=== PATIENT | male | born 1980 | race Caucasian/White ===

== ENCOUNTER 2022-02-06 02:14 | Inpatient (IN) ==
[2022-02-06] MEDS ORDERED: methylPREDNISolone SOD SUC 125 MG/2 ML VIAL IV STA (02:46)
[2022-02-06] MEDS ORDERED: ASPIRIN 325 MG TABLET PO STA (02:46)
[2022-02-06] MEDS ORDERED: MORPHINE 2 MG/1 ML SYRINGE IV STA (02:46)
[2022-02-06] MEDS ORDERED: ALBUTEROL/IPRATROPIUM 3 ML NEB RESP TX STA (02:46)
[2022-02-06] MEDS ORDERED: ONDANSETRON 4 MG/2 ML VIAL IV STA (02:46)
[2022-02-06 03:08] LABS: Basophils # 0.1 10*3/uL (0.0-0.2); Basophils % 0.5 % (0.0-0.8); Hematocrit 42.3 VOL% (42.0-52.0); Hemoglobin 14.1 GM/DL (14.0-18.0); Immature Granulocytes % 2.5 %; Immature Granulocytes Absolute 0.63 #; Lymphocytes # 1.8 10*3/uL (1.4-4.0); Lymphocytes % 7.2 % (21.2-54.2); Mean Corpuscular HGB Conc 33.3 GM/DL (32-36); Mean Corpuscular Volume 87.9 FL (87-102); Mean Platelet Volume 9.7 FL (9.6-12.0); Monocytes % 7.9 % (1.7-12.7); Neutrophils % 81.9 % (38.7-73.9); Platelet Count 260 T/CUMM (130-400); Red Blood Count 4.81 MC/CUMM (3.8-5.5); Red Cell Distribution Width 14.6 % (9.3-17.3)
[2022-02-06] MEDS ORDERED: PIPERACILLIN/TAZOBACTAM 3,375 MG in SODIUM CHLORIDE 0.9% 100 ML IV STA (03:21)
[2022-02-06 03:29] LABS: Lymphocytes 5 % (20-55); Platelet Estimate Adequate; Total Cells Counted 100
[2022-02-06 03:42] LABS: Albumin 2.2 G/DL (3.4-5.0); Bilirubin,Total 1.3 MG/DL (0.20-1.00); Osmolality,Calculated 270.4 MOS/KG (273-304); Total Protein 9.2 G/DL (6.4-8.2)
[2022-02-06 03:45] LABS: Potassium 2.5 MMOL/L (3.5-5.1)
[2022-02-06] MEDS ORDERED: ENOXAPARIN 120 MG/0.8 ML SYRINGE SUBCUT STA (03:48)
[2022-02-06] MEDS ORDERED: POTASSIUM CHLORIDE RIDER 20 MEQ/100 ML PREMIX IV STA (03:48)
[2022-02-06] MEDS ORDERED: POTASSIUM CHLORIDE RIDER 20 MEQ/200 ML PREMIX IV STA (03:50)
[2022-02-06] MEDS ORDERED: ONDANSETRON 4 MG/2 ML VIAL IV PRN (04:43)
[2022-02-06] MEDS ORDERED: ACETAMINOPHEN 325 MG TABLET PO PRN (04:43)
[2022-02-06] MEDS ORDERED: MORPHINE 2 MG/1 ML SYRINGE IV PRN (04:43)
[2022-02-06 05:26] LABS: Barbiturates Screen,Urine Negative (Negative); Benzodiazepines Screen,Urine Negative (Negative); Cannabinoid Screen,Urine Negative (Negative); Opiate Screen,Urine Positive (Negative); Phencyclidine Screen,Urine Negative (Negative)
[2022-02-06] MEDS: LEVALBUTEROL 1.25 MG/3 ML NEB RESP TX SCH ×3 (07:10→19:17)
[2022-02-06] MEDS: FLUTICASONE/SALMETEROL 500-50 DISKUS 14 DOSE INH SCH ×2 (10:23→20:44)
[2022-02-06] MEDS: PANTOPRAZOLE 40 MG TABLET PO SCH (10:27)
[2022-02-06] MEDS: methylPREDNISolone SOD SUC 125 MG/2 ML VIAL IV SCH ×3 (10:30→23:07)
[2022-02-06] MEDS: PIPERACILLIN/TAZOBACTAM 3,375 MG in SODIUM CHLORIDE 0.9% 100 ML IV SCH ×2 (13:58→20:39)
[2022-02-06] MEDS: ENOXAPARIN 40 MG/0.4 ML SYRINGE SUBCUT SCH (14:00)
[2022-02-06] MEDS: MONTELUKAST 10 MG TABLET PO SCH (20:38)
[2022-02-07] MEDS: LEVALBUTEROL 1.25 MG/3 ML NEB RESP TX SCH ×4 (00:05→20:02)
[2022-02-07] MEDS: POTASSIUM CHLORIDE 20 MEQ TABLET PO PRN ×6 (04:23→23:58)
[2022-02-07] MEDS: PIPERACILLIN/TAZOBACTAM 3,375 MG in SODIUM CHLORIDE 0.9% 100 ML IV SCH ×3 (04:32→20:43)
[2022-02-07] MEDS: methylPREDNISolone SOD SUC 125 MG/2 ML VIAL IV SCH ×4 (04:32→23:15)
[2022-02-07 06:01] LABS: Basophils # 0.1 10*3/uL (0.0-0.2); Basophils % 0.6 % (0.0-0.8); Eosinophils # 0.1 10*3/uL (0.0-0.87); Eosinophils % 0.4 % (0.00-10.9); Hematocrit 36.9 VOL% (42.0-52.0); Hemoglobin 11.6 GM/DL (14.0-18.0); Immature Granulocytes Absolute 0.43 #; Lymphocytes # 1.2 10*3/uL (1.4-4.0); Lymphocytes % 8.3 % (21.2-54.2); Mean Corpuscular HGB Conc 31.4 GM/DL (32-36); Mean Corpuscular Volume 90.2 FL (87-102); Mean Platelet Volume 11.1 FL (9.6-12.0); Monocytes # 0.9 10*3/uL (0.11-0.8); Monocytes % 6.7 % (1.7-12.7); Platelet Count 190 T/CUMM (130-400); Red Blood Count 4.09 MC/CUMM (3.8-5.5); Red Cell Distribution Width 14.8 % (9.3-17.3); White Blood Count 14.1 T/CUMM (4-12)
[2022-02-07 06:13] LABS: Alanine Aminotransferase 54 U/L (16-61); Albumin 1.6 G/DL (3.4-5.0); Alkaline Phosphatase 115 U/L (45-117); Aspartate Amino Transferase 48 U/L (0-37); Bilirubin,Total < 0.39 MG/DL (0.20-1.00); Blood Urea Nitrogen 20 MG/DL (7-18); Calcium 9.2 MG/DL (8.5-10.1); Carbon Dioxide 20 MMOL/L (21-32); Chloride 106 MMOL/L (98-107); Glucose 245 MG/DL (74-106); Osmolality,Calculated 278.2 MOS/KG (273-304); Sodium 134 MMOL/L (136-145); Total Protein 7.6 G/DL (6.4-8.2)
[2022-02-07 06:17] LABS: Potassium 2.3 MMOL/L (3.5-5.1)
[2022-02-07 06:28] LABS: Lymphocytes 7 % (20-55); Total Cells Counted 100
[2022-02-07 06:29] LABS: Platelet Estimate Adequate
[2022-02-07] MEDS: PANTOPRAZOLE 40 MG TABLET PO SCH (08:17)
[2022-02-07] MEDS: FLUTICASONE/SALMETEROL 500-50 DISKUS 14 DOSE INH SCH ×2 (08:18→20:43)
[2022-02-07] MEDS ORDERED: POTASSIUM CHLORIDE 20 MEQ TABLET PO SCH (09:30)
[2022-02-07] MEDS: ENOXAPARIN 40 MG/0.4 ML SYRINGE SUBCUT SCH (11:55)
[2022-02-07] MEDS ORDERED: POTASSIUM CHLORIDE 20 MEQ TABLET PO ONE (12:00)
[2022-02-07] MEDS: MONTELUKAST 10 MG TABLET PO SCH (20:42)
[2022-02-08] MEDS: LEVALBUTEROL 1.25 MG/3 ML NEB RESP TX SCH ×4 (00:50→19:35)
[2022-02-08] MEDS: POTASSIUM CHLORIDE 20 MEQ TABLET PO PRN ×2 (01:51→03:57)
[2022-02-08] MEDS: PIPERACILLIN/TAZOBACTAM 3,375 MG in SODIUM CHLORIDE 0.9% 100 ML IV SCH ×3 (02:57→21:12)
[2022-02-08] MEDS: methylPREDNISolone SOD SUC 125 MG/2 ML VIAL IV SCH ×3 (05:02→23:30)
[2022-02-08 05:42] LABS: Basophils # 0.1 10*3/uL (0.0-0.2); Basophils % 0.7 % (0.0-0.8); Hematocrit 34.2 VOL% (42.0-52.0); Hemoglobin 11.4 GM/DL (14.0-18.0); Immature Granulocytes % 3.6 %; Immature Granulocytes Absolute 0.47 #; Lymphocytes # 1.4 10*3/uL (1.4-4.0); Lymphocytes % 10.9 % (21.2-54.2); Mean Corpuscular HGB Conc 33.3 GM/DL (32-36); Mean Corpuscular Volume 87.7 FL (87-102); Mean Platelet Volume 10.1 FL (9.6-12.0); Monocytes # 0.7 10*3/uL (0.11-0.8); Monocytes % 5.6 % (1.7-12.7); Neutrophils % 79.2 % (38.7-73.9); Platelet Count 251 T/CUMM (130-400); Red Cell Distribution Width 14.8 % (9.3-17.3)
[2022-02-08 06:00] LABS: Calcium 8.6 MG/DL (8.5-10.1); Osmolality,Calculated 278.2 MOS/KG (273-304); Potassium 3.3 MMOL/L (3.5-5.1)
[2022-02-08] MEDS: FLUTICASONE/SALMETEROL 500-50 DISKUS 14 DOSE INH SCH ×2 (09:50→21:13)
[2022-02-08] MEDS: PANTOPRAZOLE 40 MG TABLET PO SCH (09:50)
[2022-02-08] MEDS: ENOXAPARIN 40 MG/0.4 ML SYRINGE SUBCUT SCH (11:53)
[2022-02-08] MEDS ORDERED: methylPREDNISolone SOD SUC 125 MG/2 ML VIAL IV SCH (13:00)
[2022-02-08] MEDS ORDERED: POTASSIUM CHLORIDE 20 MEQ TABLET PO ONE (13:00)
[2022-02-08] MEDS: MONTELUKAST 10 MG TABLET PO SCH (21:15)
[2022-02-09] MEDS: LEVALBUTEROL 1.25 MG/3 ML NEB RESP TX SCH ×4 (00:10→19:03)
[2022-02-09] MEDS: PIPERACILLIN/TAZOBACTAM 3,375 MG in SODIUM CHLORIDE 0.9% 100 ML IV SCH (02:56)
[2022-02-09 06:03] LABS: Basophils # 0.1 10*3/uL (0.0-0.2); Basophils % 0.8 % (0.0-0.8); Eosinophils % 0.1 % (0.00-10.9); Hematocrit 34.9 VOL% (42.0-52.0); Hemoglobin 11.5 GM/DL (14.0-18.0); Immature Granulocytes % 7.1 %; Immature Granulocytes Absolute 0.84 #; Lymphocytes # 1.9 10*3/uL (1.4-4.0); Mean Corpuscular Volume 88.1 FL (87-102); Mean Platelet Volume 10.2 FL (9.6-12.0); Monocytes # 0.6 10*3/uL (0.11-0.8); Monocytes % 4.9 % (1.7-12.7); Neutrophils % 71.1 % (38.7-73.9); Platelet Count 287 T/CUMM (130-400); Red Blood Count 3.96 MC/CUMM (3.8-5.5); White Blood Count 11.8 T/CUMM (4-12)
[2022-02-09 06:25] LABS: Band Neutrophils 2 % (0-10); Lymphocytes 17 % (20-55); Promyelocytes 1 %; Total Cells Counted 100
[2022-02-09 06:26] LABS: Microcytosis Slight
[2022-02-09 06:32] LABS: Calcium 8.7 MG/DL (8.5-10.1); Osmolality,Calculated 280.7 MOS/KG (273-304)
[2022-02-09] MEDS: methylPREDNISolone SOD SUC 125 MG/2 ML VIAL IV SCH (10:51)
[2022-02-09] MEDS: FLUTICASONE/SALMETEROL 500-50 DISKUS 14 DOSE INH SCH ×2 (10:51→22:17)
[2022-02-09] MEDS: PANTOPRAZOLE 40 MG TABLET PO SCH (10:52)
[2022-02-09] MEDS: NICOTINE 21 MG/24 HR PATCH TRANSDERM SCH (10:52)
[2022-02-09] MEDS ORDERED: cefTRIAXone 1,000 MG VIAL IV SCH (11:00)
[2022-02-09] MEDS: ENOXAPARIN 40 MG/0.4 ML SYRINGE SUBCUT SCH (13:37)
[2022-02-09] MEDS: cefTRIAXone 1,000 MG in SODIUM CHLORIDE 0.9% 100 ML IV SCH (13:37)
[2022-02-09] MEDS: predniSONE 20 MG TABLET PO SCH ×2 (18:09→22:16)
[2022-02-09] MEDS: MONTELUKAST 10 MG TABLET PO SCH (22:17)
[2022-02-10] MEDS: LEVALBUTEROL 1.25 MG/3 ML NEB RESP TX SCH ×4 (00:26→19:56)
[2022-02-10] MEDS: NICOTINE 21 MG/24 HR PATCH TRANSDERM SCH (08:26)
[2022-02-10] MEDS: predniSONE 20 MG TABLET PO SCH ×3 (08:26→21:04)
[2022-02-10] MEDS: PANTOPRAZOLE 40 MG TABLET PO SCH (08:26)
[2022-02-10] MEDS: FLUTICASONE/SALMETEROL 500-50 DISKUS 14 DOSE INH SCH ×2 (08:27→21:04)
[2022-02-10] MEDS: ENOXAPARIN 40 MG/0.4 ML SYRINGE SUBCUT SCH (12:13)
[2022-02-10] MEDS: cefTRIAXone 1,000 MG in SODIUM CHLORIDE 0.9% 100 ML IV SCH (12:13)
[2022-02-10] MEDS: MONTELUKAST 10 MG TABLET PO SCH (21:03)
[2022-02-11] MEDS: LEVALBUTEROL 1.25 MG/3 ML NEB RESP TX SCH ×4 (01:58→19:10)
[2022-02-11] MEDS: FLUTICASONE/SALMETEROL 500-50 DISKUS 14 DOSE INH SCH ×2 (08:48→21:23)
[2022-02-11] MEDS: predniSONE 20 MG TABLET PO SCH ×3 (08:48→21:23)
[2022-02-11] MEDS: PANTOPRAZOLE 40 MG TABLET PO SCH (08:48)
[2022-02-11] MEDS: NICOTINE 21 MG/24 HR PATCH TRANSDERM SCH (08:48)
[2022-02-11] MEDS: cefTRIAXone 1,000 MG in SODIUM CHLORIDE 0.9% 100 ML IV SCH (14:42)
[2022-02-11] MEDS: ENOXAPARIN 40 MG/0.4 ML SYRINGE SUBCUT SCH (14:43)
[2022-02-11] MEDS: MONTELUKAST 10 MG TABLET PO SCH (21:23)
[2022-02-12] MEDS: LEVALBUTEROL 1.25 MG/3 ML NEB RESP TX SCH ×4 (00:25→19:38)
[2022-02-12] MEDS: predniSONE 20 MG TABLET PO SCH ×3 (10:23→21:24)
[2022-02-12] MEDS: FLUTICASONE/SALMETEROL 500-50 DISKUS 14 DOSE INH SCH ×2 (10:23→21:24)
[2022-02-12] MEDS: NICOTINE 21 MG/24 HR PATCH TRANSDERM SCH (10:23)
[2022-02-12] MEDS: PANTOPRAZOLE 40 MG TABLET PO SCH (10:23)
[2022-02-12] MEDS: ENOXAPARIN 40 MG/0.4 ML SYRINGE SUBCUT SCH (12:34)
[2022-02-12] MEDS: cefTRIAXone 1,000 MG in SODIUM CHLORIDE 0.9% 100 ML IV SCH (14:23)
[2022-02-12] MEDS: MONTELUKAST 10 MG TABLET PO SCH (21:24)
[2022-02-13] MEDS: LEVALBUTEROL 1.25 MG/3 ML NEB RESP TX SCH ×2 (00:40→07:49)
[2022-02-13] MEDS: predniSONE 20 MG TABLET PO SCH (09:18)
[2022-02-13] MEDS: FLUTICASONE/SALMETEROL 500-50 DISKUS 14 DOSE INH SCH (09:18)
[2022-02-13] MEDS: PANTOPRAZOLE 40 MG TABLET PO SCH (09:18)
[2022-02-13] MEDS: NICOTINE 21 MG/24 HR PATCH TRANSDERM SCH (09:18)
[2022-02-13] MEDS: ENOXAPARIN 40 MG/0.4 ML SYRINGE SUBCUT SCH (11:55)
[2022-02-13 11:58] VITALS: BP 131/72
[2022-02-13] MEDS: cefTRIAXone 1,000 MG in SODIUM CHLORIDE 0.9% 100 ML IV SCH (12:00)
== END 2022-02-13 13:36 | disposition home or self-care (01) | DRG 194 ==
LOC: EDUNIT# → EDBD → N.ED 02:14 → SUATTDRO 04:43 → N.EDINP 04:43 → N.5E 14:17
PROVIDERS: ADMIT Internal Medicine; ATTEND Emergency Medicine